=== PATIENT | female | born 1950 | race Caucasian/White ===

== ENCOUNTER 2017-06-27 12:27 | Day surgery (SDC) | payer OTHER ==
[2017-06-27] MEDS ORDERED: MIDAZOLAM 1 MG/ML 2 ML INJ ×2 (14:34→14:35)
[2017-06-27] MEDS ORDERED: FENTAnyl 50 MCG/ML VIAL (14:34)
== END 2017-06-27 15:04 | disposition home or self-care (01) ==
LOC: GIL 12:27
DX: Z12.11 Encounter for screening for malignant neoplasm of colon (principal); K29.50 Unspecified chronic gastritis without bleeding; K44.9 Diaphragmatic hernia without obstruction or gangrene; K21.9 Gastro-esophageal reflux disease without esophagitis; K64.8 Other hemorrhoids
CPT/HCPCS: 43239; 88305; 88312